=== PATIENT | male | born 1985 | race Caucasian/White ===

== ENCOUNTER 2021-03-20 18:22 | Emergency (ER) | payer MEDICAID, SELFPAY ==
[2021-03-20 18:26] VITALS: BP 150/80; PULSE 76; RESP 16; TEMP 36.7; O2SAT 100
--- NOTE | 2021-03-20 18:50 | W.ED.GENAD ---
Discharge Plan Disposition Patient Disposition: HOME Condition: Stable Discharge Details Clinical Impression: Cutaneous abscess of right hand, Opiate abuse, episodic Primary Care Provider: None,None ED Provider: Melanie Rutledge Home Meds and New Rx's Prescriptions: New clonidine HCl 0.1 mg tablet 0.1 mg PO Q12H PRN (Reason: withdrawal) 2 Days Qty: 4 RF: 0 cephalexin 500 mg tablet 500 mg PO BID 7 Days Qty: 14 RF: 0 No Action albuterol sulfate 90 mcg/actuation Hfa Aerosol Inhaler 1 - 2 inh INHALATION 4-6XD PRNRF: 0 Discharge Instructions Instructions: Abscess (ED) Additional Instructions: Please do not take right do not use opiates for the next couple days until your appointment on . Take the antibiotics as prescribed twice daily. You are given the first dose here. Follow up with primary care provider in 3-5 days. Return to ED sooner if any worsening or concerns. Increase oral fluids. Please take Tylenol or Ibuprofen with food every 4-6 hours as needed for pain and swelling. Medical Decision Making 35-year-old male presents to the ER with chief complaint of right hand abscess which occurred after shooting up heroin approximately 24 hours ago. Patient has a red raised area to the dorsum of his right hand. No fluctuance palpated. Patient has full range of motion. Patient states that he is trying to get into the [facility] as an appointment on for opioid dependence treatment. He is also requesting clonidine to get through the next couple of days of withdrawal symptoms. He reports fever and chills undocumented. Denies any other associated symptoms. At this time there is no fluctuance or evidence to suggest the need for incision and drainage. Patient given Keflex here in the department and prescription given. Patient given a prescription for 0.1 mg clonidine twice daily x2 days. HPI General Mode of arrival: ambulatory. Date/Time Provider Initiated Documentation: 03/20/21 18:22. Limitations to Documentation: no limitations. Information obtained by: patient and RN notes reviewed. HPI Narrative: 35-year-old male presents to the ER with chief complaint of right hand abscess which occurred after shooting up heroin approximately 24 hours ago. Patient has a red raised area to the dorsum of his right hand. No fluctuance palpated. Patient has full range of motion. Patient states that he is trying to get into the [facility] as an appointment on for opioid dependence treatment. He is also requesting clonidine to get through the next couple of days of withdrawal symptoms. He reports fever and chills undocumented. Denies any other associated symptoms. Related Data Home Medications Medication Instructions Recorded Confirmed albuterol sulfate 1 - 2 inh INHALATION 4-6XD PRN 03/20/21 03/20/21 cephalexin 500 mg PO BID 7 Days #14 tab 03/20/21 clonidine HCl 0.1 mg PO Q12H PRN 2 Days #4 tab 03/20/21 Previous Rx's Medication Instructions Recorded cephalexin 500 mg PO BID 7 Days #14 tab 03/20/21 clonidine HCl 0.1 mg PO Q12H PRN 2 Days #4 tab 03/20/21 Allergies Allergy/AdvReac Type Severity Reaction Status Date / Time No Known Allergies Allergy Unverified 03/20/21 18:32 General Stated Complaint: RashLesion LAUREN: 4 Review of Systems All systems reviewed & are unremarkable except as noted in HPI and below Musculoskeletal Musculoskeletal: Reports as per HPI Integumentary/Breasts Skin/Breast: Reports erythema, Reports skin pain and Reports skin swelling PFSH All Active Problems Cutaneous abscess of right hand (Acute) Opiate abuse, episodic (Acute) Social History Smoking/Tobacco Use Status: Current every day Tobacco Type: cigarettes Smoking risk assessment performed?: Yes Alcohol Intake: never Drug use: Daily Substance use type: IV drugs Details: IV fentanyl used yesterday Do you feel safe at home: Yes Do you feel safe in your relationship?: Yes Exam Extrem Right upper extremity: full ROM and hand Details: normal capillary refill, neuromotor exam normal, tenderness and swelling; no crepitus; no cyanosis and no edema Hand/finger images: 1. Approximately 1 cm x 1 cm area of erythema and raised. No fluctuance palpated there are track shaw surrounding area. Course Vital Signs Vital signs: Vital Signs Temperature 36.7 C 03/20/21 18:26 Pulse 76 03/20/21 18:26 Respiratory Rate 16 03/20/21 18:26 Blood Pressure 150/80 H 03/20/21 18:26 Pulse Oximetry 100 03/20/21 18:26 Temperature 36.7 C 03/20/21 18:26 Temperature Source Oral 03/20/21 18:26 Pulse 76 03/20/21 18:26 Respiratory Rate 16 03/20/21 18:26 Respiratory Effort Non-Labored 03/20/21 18:30 Blood Pressure 150/80 H 03/20/21 18:26 Blood Pressure Position Sitting 03/20/21 18:26 Pulse Oximetry 100 03/20/21 18:26 Oxygen Delivery Method Room Air 03/20/21 18:26 Oxygen Flow Rate 0 03/20/21 18:26 Pain Level 7 03/20/21 18:26
[2021-03-20 19:00] VITALS: BP 128/76; PULSE 64; RESP 18; O2SAT 98
[2021-03-20] MEDS: Cephalexin 500 MG CAP PO (19:00)
[2021-03-20] MEDS: Cephalexin 500 MG CAP, 2 CAPS/BTL PO (19:00)
== END 2021-03-20 19:02 | disposition home or self-care (01) ==
PROVIDERS: Emergency Provider Registered Nurse Emergency
DX: L02.511 Cutaneous abscess of right hand (principal); F11.10 Opioid abuse, uncomplicated
CPT/HCPCS: 99283